=== PATIENT | male | born 1985 | race African-American/Black ===

== ENCOUNTER 2017-12-10 18:13 | Emergency (ER) | payer SELFPAY, OTHER ==
[2017-12-10] MEDS: IV NORMAL SALINE 1000ML BAG 1,000 ML IV (19:38)
[2017-12-10] MEDS: ONDANSETRON PF 4 MG/2 ML VIAL. IV (19:45)
[2017-12-10 20:02] LABS: BASO % 0 % (0-3); EOS % 0 % (0-3); HEMATOCRIT 44.4 % (39.0-53.0); HEMOGLOBIN 15.4 g/dL (13.0-17.5); LYMPH # 0.7 x10^3/uL (1.0-4.8); LYMPH % 7 % (24-48); MEAN CORPUSCULAR HEMOGLOBIN 31 pg (25-35); MEAN CORPUSCULAR HGB CONC 35 g/dL (31-37); MEAN CORPUSCULAR VOLUME 89 fL (79-100); MONO # 0.5 x10^3/uL (0.0-1.1); MONO % 6 % (0-9); NEUT # 8.4 x10^3uL (1.8-7.7); NEUT % 87 % (31-73); PLATELET COUNT 241 x10^3/uL (140-400); RED BLOOD COUNT 5.01 x10^6/uL (4.30-5.70); WHITE BLOOD COUNT 9.7 x10^3/uL (4.0-11.0)
[2017-12-10 20:03] LABS: ADD MAN DIFF? YES
[2017-12-10 20:15] LABS: INR 1.1 (0.8-1.1); PARTIAL THROMBOPLASTIN TIME 29 SEC (24-38); PROTHROMBIN TIME PATIENT 13.6 SEC (11.7-14.0)
[2017-12-10] MEDS: fentaNYL PF VIAL 100 MCG/2 ML VIAL IV (20:15)
[2017-12-10 20:17] LABS: ANION GAP 10 (6-14); BLOOD UREA NITROGEN 11 mg/dL (8-26); CARBON DIOXIDE 28 mmol/L (21-32); CHLORIDE 107 mmol/L (98-107); GFR 104.8; GLUCOSE 102 mg/dL (70-99); SODIUM 145 mmol/L (136-145)
[2017-12-10 20:23] LABS: ALK PHOS 57 U/L (46-116); ALT (SGPT) 24 U/L (16-63); AST (SGOT) 21 U/L (15-37); DIRECT BILIRUBIN 0.2 mg/dL (0.0-0.2); LIPASE 40 U/L (73-393); TOTAL BILIRUBIN 1.1 mg/dL (0.2-1.0); TOTAL PROTEIN 7.7 g/dL (6.4-8.2)
[2017-12-10 20:30] LABS: CKMB INDEX 0.3 % (0-4); CKMB MASS 0.7 ng/mL (0.0-3.6); CREATINE KINASE 219 U/L (39-308)
[2017-12-10 20:33] LABS: % ATYL 3 % (0-0); % LYMPHS 6 % (24-48); % MONOS 2 % (0-10); % SEGS 89 % (35-66)
[2017-12-10 20:34] LABS: PLT ESTIMATE ADEQUATE (ADEQUATE)
[2017-12-10 21:10] LABS: LACTIC ACID 0.9 mmol/L (0.4-2.0)
[2017-12-10] MEDS: IOHEXOL 300 MG/ML 100ML VIAL. IV (21:10)
[2017-12-10] MEDS: MAGNESIUM CITRATE 296 ML SOLUTION. PO (22:30)
[2017-12-10] MEDS: SODIUM PHOSPHATES 19/7GM 133 ML ENEMA. PR (22:54)
[2017-12-10 23:14] LABS: BILIRUBIN,URINE NEGATIVE (NEG); CLARITY,URINE TURBID; COLOR,URINE YELLOW; GLUCOSE,URINE NEGATIVE (NEG); NITRITE,URINE NEGATIVE (NEG); PH,URINE 8.5; PROTEIN,URINE NEGATIVE (NEG-TRACE); UROBILINOGEN,URINE 0.2 mg/dL (0.2 mg/dL)
[2017-12-10 23:20] LABS: BARBITURATES NEG (NEG); BENZODIAZEPINES NEG (NEG); CANNABINOIDS POS (NEG); COCAINE NEG (NEG); METHADONE NEG (NEG); OPIATES NEG (NEG); PHENCYCLIDINE NEG (NEG)
[2017-12-10 23:22] LABS: AMPHETAMINE/METHAMPHETAMINE NEG (NEG); ETHANOL, URINE NEG (NEG)
[2017-12-10 23:23] LABS: BACTERIA,URINE 0 /HPF (0-FEW); RBC,URINE 0 /HPF (0-2); SQUAMOUS EPITHELIAL CELL,UR OCC /LPF
[2017-12-10 23:24] LABS: AMORPHOUS SEDIMENT,UR PRESENT /HPF
== END 2017-12-11 00:18 | disposition home or self-care (01) ==
LOC: ER 12-11 00:18
DX: K59.00 Constipation, unspecified (principal)
CPT/HCPCS: 36415; 74022; 74177; 80048; 80076; 80307; 81001; 82553; 83605; 83690; 85007; 85025; 85610; 85730; 87086; 96361; 96374; 96375; 99285-25; J2405; J3010; J7030; Q9967

== ENCOUNTER 2021-02-26 00:49 | Emergency (ER) | payer SELFPAY ==
[~2021-02-26] VITALS: Ht 172.7 cm; Wt 59.1 kg
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
[2021-02-26 02:25] VITALS: BP 111/77
== END 2021-02-26 02:40 | disposition home or self-care (01) ==
LOC: ER 00:49
DX: S40.812A Abrasion of left upper arm, initial encounter (principal); S00.81XA Abrasion of other part of head, initial encounter; S10.91XA Abrasion of unspecified part of neck, initial encounter; F17.200 Nicotine dependence, unspecified, uncomplicated; W25.XXXA Contact with sharp glass, initial encounter; Y93.89 Activity, other specified; Y92.89 Other specified places as the place of occurrence of the external cause; Y99.8 Other external cause status
CPT/HCPCS: 99284